=== PATIENT | male | born 1985 | race Caucasian/White ===

== ENCOUNTER 2022-02-23 02:37 | Emergency (ER) | payer OTHER ==
[2022-02-23 05:29] LABS: HEMOGLOBIN 15.9 gm/dl (14.0-17.5); RED BLOOD COUNT 5.11 M/UL (4.20-5.50)
[2022-02-23 06:19] LABS: BUN/CREATININE RATIO 17 (0-10)
[2022-02-23] MEDS ORDERED: KEFLEX CAP 250250 MG PO (06:43)
== END 2022-02-23 07:00 | disposition home or self-care (01) ==
LOC: ER1 02:37
PROVIDERS: Family Medicine
DX: R07.9 Chest pain, unspecified (principal); N39.0 Urinary tract infection, site not specified
CPT/HCPCS: 71045; 80053; 80307; 81001; 82550; 82553; 84484; 85025; 85379; 93005; 99285

== ENCOUNTER → 2022-04-01 | Outpatient (CLI) | payer OTHER ==
[~2022-04-01] MED LIST: KEFLEX CAP 250250 MG PO
== END ==
LOC: HEART CORB 03-21 10:30
DX: R07.9 Chest pain, unspecified (principal); I10 Essential (primary) hypertension